=== PATIENT | male | born 1950 | race Two or more races ===

== ENCOUNTER 2019-10-20 11:58 | Inpatient (IN) | payer MEDICAID ==
[~2019-10-20] VITALS: Ht 165.1 cm; Wt 82.2 kg
[2019-10-20 12:00] VITALS: BP 142/83
[2019-10-20] MEDS ORDERED: TYLENOL325 M1 PO (12:14)
[2019-10-20] MEDS ORDERED: CRANBERRY450 M4 PO (12:14)
[2019-10-20] MEDS ORDERED: TENORMIN25 MG ORAL (12:14)
[2019-10-20] MEDS ORDERED: TEGRETOL100 MG/5 M PO (12:14)
[2019-10-20] MEDS ORDERED: ASPIR 8181 MG ORAL (12:14)
[2019-10-20] MEDS ORDERED: BETAMETHASONE D15 GM TP (12:14)
[2019-10-20] MEDS ORDERED: TYLENOL EXTRA500 MG ORAL (12:14)
[2019-10-20] MEDS ORDERED: MULTIVITAMINS1 EAC8 ORAL (12:14)
--- NOTE | 2019-10-20 12:24 | Emergency Room Report ---
History of Present Illness General Chief Complaint: Abnormal Labs Present Illness HPI Disclaimer: Please note that this report is being documented using DRAGON technology. This can lead to erroneous entry secondary to incorrect interpretation by the dictating instrument. HPI: 69-year-old male with a history of seizure disorder, intellectual disability, unspecified psychiatric issue, hypertension presents from [facility] for evaluation of low sodium. Accompanying paperwork shows labs were collected on 10/13 and reported a sodium of 128. The patient is denying any pain or complaints at this time. No other issues listed in accompanying paperwork. PMH: Hypertension, seizure disorder, personal disorder, electrical delay PSH: Unspecified brain surgery Allergies: None reported Social Hx: None reported Allergies: Coded Allergies: No Known Allergies (Unverified , 10/20/19) COVID-19 Screening Contact w/high risk pt: No Recent Travel to affected area: No Experienced COVID-19 symptoms?: No COVID-19 Testing performed LEAK INSPECTOR: No Nursing Documentation-PMH Hx Hypertension: Yes Hx Seizures: Yes - epilepsy Review of Systems All Other Systems: negative except mentioned in HPI Physical Exam Vital Signs Date Time Temp Pulse Resp B/P (MAP) Pulse Ox O2 Delivery O2 Flow Rate FiO2 10/20/19 11:58 98.4 54 20 146/88 (107) 93 Room Air General: Awake, Pleasant, no distress HEENT: Evidence of prior craniotomy with depression on the left skull. Cardiovascular: RRR. S1 and S2 normal. No murmur appreciated Resp: Normal work of breathing. No cough, wheezing or crackles appreciated Abdomen: Abdomen is soft, nondistended. Nontender Skin: Intact. No abrasions, laceration or rash over the exposed skin MSK: Normal tone and bulk. Moving all extremities. No obvious deformity. Neuro: Awake and alert. Mentating appropriately. Medical Decision Making Diagnostic Impression: Primary Impression: Hyponatremia ER Course 69-year-old male presents from nursing facility for evaluation of hyponatremia found on outpatient testing. Patient arrives well-appearing and reportedly at his neurologic baseline. No acute distress at this time. Labs confirmed hyponatremia. Sent urine electrolytes, cortisol which are pending. Patient will be admitted to his PMD, Dr. Jones. Laboratory Tests Test 10/20/19 12:30 White Blood Count 12.7 K/UL (4.8-10.8) H Red Blood Count 5.28 M/UL (4.70-6.10) Hemoglobin 16.4 G/DL (14.2-18.0) Hematocrit 45.5 % (42.0-52.0) Mean Corpuscular Volume 86 FL (80-99) Mean Corpuscular Hemoglobin 31.1 PG (27.0-31.0) H Mean Corpuscular Hemoglobin Concent 36.1 G/DL (32.0-36.0) H Red Cell Distribution Width 10.8 % (11.6-14.8) L Platelet Count 321 K/UL (150-450) Mean Platelet Volume 5.1 FL (6.5-10.1) L Neutrophils (%) (Auto) 55.7 % (45.0-75.0) Lymphocytes (%) (Auto) 25.7 % (20.0-45.0) Monocytes (%) (Auto) 9.8 % (1.0-10.0) Eosinophils (%) (Auto) 7.6 % (0.0-3.0) H Basophils (%) (Auto) 1.2 % (0.0-2.0) Urine Color Yellow Urine Appearance Clear Urine pH 6.5 (4.5-8.0) Urine Specific [place] 1.015 (1.005-1.035) Urine Protein 1+ (NEGATIVE) H Urine Glucose (UA) Negative (NEGATIVE) Urine Ketones Negative (NEGATIVE) Urine Blood 1+ (NEGATIVE) H Urine Nitrite Negative (NEGATIVE) Urine Bilirubin Negative (NEGATIVE) Urine Urobilinogen Normal MG/DL (0.0-1.0) Urine Leukocyte Esterase Negative (NEGATIVE) Urine RBC 0-2 /HPF (0 - 0) H Urine WBC 0 /HPF (0 - 0) Urine Squamous Epithelial Cells Occasional /LPF Urine Amorphous Sediment Few /LPF (NONE) H Urine Bacteria Occasional /HPF (NONE) Urine Osmolality 671 mOsm/kg (429-449) H Urine Random Sodium 50 mmol/L (20-110) Urine Collection Time Pending Urine Total Volume Pending Urine Sodium mEQ/L Pending Urine Sodium 24 Hour Pending Sodium Level 129 MMOL/L (136-145) L Potassium Level 4.1 MMOL/L (3.5-5.1) Chloride Level 93 MMOL/L (98-107) L Carbon Dioxide Level 26 MMOL/L (21-32) Anion Gap 10 mmol/L (5-15) Blood Urea Nitrogen 11 mg/dL (7-18) Creatinine 0.7 MG/DL (0.55-1.30) Estimated Glomerular Filtration Rate > 60 mL/min (>60) Glucose Level 96 MG/DL (74-106) Calcium Level 8.8 MG/DL (8.5-10.1) Phosphorus Level 3.9 MG/DL (2.5-4.9) Magnesium Level 1.8 MG/DL (1.8-2.4) Thyroid Stimulating Hormone (TSH) 1.927 uiU/mL (0.358-3.740) Cortisol 9.0 UG/DL Last Vital Signs Date Time Temp Pulse Resp B/P (MAP) Pulse Ox O2 Delivery O2 Flow Rate FiO2 10/20/19 11:58 98.4 54 20 146/88 (107) 93 Room Air Disposition: ADMITTED INPATIENT Condition: Stable Aman Chow MD Oct 20, 2019 12:24
--- NOTE | 2019-10-20 12:30 | NUR ---
ED Nurse Note: Pt BIBA from [facility] for abnormal labs. Pt had Na lab level of 128. Pt is alert and orientedx3, british speaking. He has 2 indentations in head. Pt has cast on R foot and arm. Pulses present, ROM 3/5.
[2019-10-20 13:12] LABS: APPEARANCE,URINE CLEAR; BILIRUBIN, URINE NEGATIVE (NEGATIVE); GLUCOSE, URINE (UA) NEGATIVE (NEGATIVE); KETONES,URINE NEGATIVE (NEGATIVE); LEUKOCYTE ESTERASE ,URINE NEGATIVE (NEGATIVE); NITRITE,URINE NEGATIVE (NEGATIVE); PH,URINE 6.5 (4.5-8.0); PROTEIN,URINE 1+ (NEGATIVE); UROBILINOGEN,URINE NORMAL MG/DL (0.0-1.0)
[2019-10-20 13:16] LABS: BASOPHILS % (AUTO) 1.2 % (0.0-2.0); COLOR,URINE YELLOW; EOSINOPHILS % (AUTO) 7.6 % (0.0-3.0); HEMATOCRIT 45.5 % (42.0-52.0); HEMOGLOBIN 16.4 G/DL (14.2-18.0); LYMPHOCYTES % (AUTO) 25.7 % (20.0-45.0); MEAN CORPUSCULAR VOLUME 86 FL (80-99); MONOCYTES % (AUTO) 9.8 % (1.0-10.0); NEUTROPHILS % (AUTO) 55.7 % (45.0-75.0); PLATELET COUNT 321 K/UL (150-450); RED BLOOD COUNT 5.28 M/UL (4.70-6.10); RED CELL DISTRIBUTION WIDTH 10.8 % (11.6-14.8); WHITE BLOOD COUNT 12.7 K/UL (4.8-10.8)
[2019-10-20 13:22] LABS: ANION GAP 10 mmol/L (5-15); BLOOD UREA NITROGEN 11 mg/dL (7-18); CALCIUM 8.8 MG/DL (8.5-10.1); CARBON DIOXIDE 26 MMOL/L (21-32); CHLORIDE 93 MMOL/L (98-107); CREATININE 0.7 MG/DL (0.55-1.30); POTASSIUM 4.1 MMOL/L (3.5-5.1); SODIUM 129 MMOL/L (136-145)
[2019-10-20 13:36] LABS: PHOSPHORUS 3.9 MG/DL (2.5-4.9)
[2019-10-20 15:43] VITALS: BP 136/76
--- NOTE | 2019-10-20 15:43 | NUR ---
ED Nurse Note: Report given to Marion CEBALLOS.
[2019-10-20] MEDS ORDERED: Acetaminophen 500mg (ES) tab ORAL PRN (15:49)
[2019-10-20] MEDS ORDERED: HydrALAZINE 25mg tab ORAL PRN (15:51)
--- NOTE | 2019-10-20 16:10 | NUR ---
ED Nurse Note: Pt transferred to MS w/ al belongings. No acute distress. VSS.
--- NOTE | 2019-10-20 17:37 | NUR ---
NURSE NOTES: Report received from ED at 1530, patient will be admitted to room 405-[address] Jones. Addendum: 10/20/19 at 1818 by Marion Gongora RN Report received from TUCKER Ortiz.
[2019-10-20] MEDS ORDERED: carBAMazepine 200mg tab ORAL SCH (18:00)
[2019-10-20] MEDS: Docusate 100mg cap ORAL SCH (18:04)
[2019-10-20] MEDS: D5NS 1,000 ML IV SCH (18:05)
--- NOTE | 2019-10-20 18:19 | NUR ---
NURSE NOTES: Admitted a 69 year old male from ED at 4:[address] Jones with admitting dx of Hyponatremia, alert and oriented x 3-4, verbal and able to make needs known in [place], no shortness of breath, no c/o any pain or discomfort upon arrival, VS as follows: BP: 139/74 RR: 16 HR: 78 T:98.2, on room air, IV line on left AC patent and flushing well with D5NS running at 50 cc/hr tolerating well, bed in lowest position with alarm on, side rails up x 2 and breaks engaged, will continue to monitor and proceed with plan of care, nursing needs attended, call light within reach.
--- NOTE | 2019-10-20 19:43 | NUR ---
HAND-OFF: Report given to TUCKER Fu.
--- NOTE | 2019-10-20 19:44 | NUR ---
NURSE NOTES: Receive pt on the bad awake, verbal and A&O x3-4. pt has no sob,fever,cough and pain. bed in the lowest position, locked,alarm on and seizure precaution implanted. call light within reach. we will keep monitoring
[2019-10-20 20:00] VITALS: BP 138/73
[2019-10-20] MEDS: carBAMazepine 200mg tab ORAL SCH (20:26)
[2019-10-20] MEDS: Heparin 5000 units/ml inj SUBQ SCH (20:32)
[2019-10-21] VITALS: BP 158/83
[2019-10-21 04:00] VITALS: BP 148/95
--- NOTE | 2019-10-21 07:35 | NUR ---
NURSE NOTES: Received pt lying in hospital bed in semi-salcedo's position eating breakfast. Pt is AAO x 4, able to make needs known, appreciative when spoken to in Italian, on seizure precaution and RA with no s/s of distress or c/o pain noted at this time. Pt is on regular diet. pIV present on L AC 18 g running D5NS at 50 ml/hr. Rash present on pt's back per report with B leg redness. Will continue POC.
--- NOTE | 2019-10-21 07:36 | NUR ---
HAND-OFF: Report given to TUCKER Skinner.
[2019-10-21 07:50] LABS: BASOPHILS % (AUTO) 1.5 % (0.0-2.0); HEMATOCRIT 44.2 % (42.0-52.0); HEMOGLOBIN 16.3 G/DL (14.2-18.0); LYMPHOCYTES % (AUTO) 33.1 % (20.0-45.0); MEAN CORPUSCULAR VOLUME 86 FL (80-99); MONOCYTES % (AUTO) 11.1 % (1.0-10.0); NEUTROPHILS % (AUTO) 46.4 % (45.0-75.0); PLATELET COUNT 320 K/UL (150-450); RED BLOOD COUNT 5.13 M/UL (4.70-6.10); RED CELL DISTRIBUTION WIDTH 10.6 % (11.6-14.8); WHITE BLOOD COUNT 12.1 K/UL (4.8-10.8)
[2019-10-21 08:00] VITALS: BP 142/76
[2019-10-21 08:18] LABS: ALANINE AMINOTRANSFERASE 23 U/L (12-78); ALBUMIN 3.6 G/DL (3.4-5.0); ALBUMIN/GLOBULIN RATIO 1.1 (1.0-2.7); ALKALINE PHOSPHATASE 71 U/L (46-116); ANION GAP 10 mmol/L (5-15); ASPARTATE AMINO TRANSFERASE 23 U/L (15-37); BILIRUBIN,TOTAL 0.6 MG/DL (0.2-1.0); BLOOD UREA NITROGEN 10 mg/dL (7-18); CALCIUM 8.6 MG/DL (8.5-10.1); CARBON DIOXIDE 26 MMOL/L (21-32); CHLORIDE 97 MMOL/L (98-107); CHOLESTEROL 138 MG/DL (< 200); CREATININE 0.7 MG/DL (0.55-1.30); FERRITIN 173 NG/ML (8-388); GAMMA GLUTAMYL TRANSPEPTIDASE 128 U/L (5-85); HDL CHOLESTEROL 41 MG/DL (40-60); PHOSPHORUS 3.8 MG/DL (2.5-4.9); POTASSIUM 3.9 MMOL/L (3.5-5.1); SODIUM 133 MMOL/L (136-145); TRIGLYCERIDES 108 MG/DL (30-150)
[2019-10-21 08:26] LABS: % IRON SATURATION 48 % (15-50); IRON 124 ug/dL (50-175); TOTAL IRON BINDING CAPACITY 259 ug/dL (250-450)
[2019-10-21] MEDS: Atenolol 25mg tab ORAL SCH (09:35)
[2019-10-21] MEDS: Docusate 100mg cap ORAL SCH ×2 (09:35→18:49)
[2019-10-21] MEDS: Aspirin EC 81mg tab ORAL SCH (09:35)
[2019-10-21] MEDS: carBAMazepine 200mg tab ORAL SCH ×2 (09:36→20:46)
[2019-10-21] MEDS: Heparin 5000 units/ml inj SUBQ SCH ×2 (09:37→20:48)
--- NOTE | 2019-10-21 10:11 | Consultation ---
Consult Note Consult Note I am asked to evaluate the patient at the request of Dr. Jones for a hypo- natremia. Patient was seen in room 405 this morning. Patient dysphasic and has weakness over the right side. Emergency room note: Chief Complaint: Abnormal Labs HPI: 69-year-old male with a history of seizure disorder, intellectual disability, unspecified psychiatric issue, hypertension presents from [facility] for evaluation of low sodium. Accompanying paperwork shows labs were collected on 10/13 and reported a sodium of 128. The patient is denying any pain or complaints at this time. No other issues listed in accompanying paperwork. PMH: Hypertension, seizure disorder, personal disorder, electrical delay PSH: Unspecified brain surgery Allergies: None reported Social Hx: None reported No Known Allergies (Unverified , 10/20/19) COVID-19 Screening Contact w/high risk pt: No Recent Travel to affected area: No Experienced COVID-19 symptoms?: No COVID-19 Testing performed STARTING SHEET TANK OPERATOR: No Hx Hypertension: Yes Hx Seizures: Yes - epilepsy Patient examined. Data reviewed. Assessment/Plan Hyponatremia, most likely partly depletional. Seizure disorder. Mental developmental disorder. Right-sided weakness, possible previous cerebral event Mild elevation of hemoglobin A1c. Plan: D5 normal saline hydration improved hyponatremia Tegretol level within acceptable range Continue per current management. Keep the blood pressure in check. I spent an additional 36 minutes on review of medical records including prior hospital records,consult notes, progress notes, procedures ,imaging labs, hemodynamics, and other clinical documentation. Over 35 min Nilay Cline MD Oct 21, 2019 10:11
--- NOTE | 2019-10-21 10:46 | NUR ---
*-* INSURANCE *-* ALL AVAILABLE CLINICALS HAVE BEEN FAXED TO: [facility] P:[phone] F:[phone]
[2019-10-21 12:00] VITALS: BP 153/89
[2019-10-21] MEDS: D5NS 1,000 ML IV SCH (12:50)
--- NOTE | 2019-10-21 13:45 | NUR ---
RADIOLOGY DEPT., CHEST AND RIGHT TIB/FIB HAS BEEN IMAGED.-P.DYE
--- NOTE | 2019-10-21 14:25 | NUR ---
CASE MANAGEMENT:INITIAL REVIEW 69 YR OLD MALE BIBA FROM [facility] CC;ABNORMAL LABS SI;HYPONATREMIA 98.4 54 20 146/88 93% ONR A WBC 12.7 NA 129 UA = PROTEIN, BLOOD, RBC, AMORPHOUS SEDIMENT, OSMALITY 671 IS;IVF D5 ADMITTED TO MED SURG MED SURG STATUS DCP;FROM [facility]
--- NOTE | 2019-10-21 14:40 | Diagnostic Imaging Report ---
Indication: Cough Technique: One view of the chest Comparison: none Findings: There is some atelectasis at the left lateral lung base. Lungs and pleural spaces are otherwise clear. The heart size is normal. The aorta is tortuous. Impression: Left lateral basilar atelectasis. No acute process otherwise
[2019-10-21 16:00] VITALS: BP 163/105
--- NOTE | 2019-10-21 19:00 | Consultation ---
DATE OF CONSULTATION: 10/21/2019 INFECTIOUS DISEASE CONSULTATION CONSULTING PHYSICIAN: Ermias Swenson MD. PRIMARY ATTENDING: Britta Jones MD. REASON FOR CONSULT: Leukocytosis, eosinophilia, rash. HISTORY OF PRESENT ILLNESS: This is a 69-year-old male admitted yesterday from retirement because of abnormal laboratories, hyponatremia, and leukocytosis. He is very poor historian. PAST MEDICAL HISTORY: Positive for epilepsy, likely has CVA. He has pathologic fracture. He has dental problem. ALLERGIES: No known drug allergy. MEDICATIONS: Getting aspirin, atenolol, carbamazepine, Protonix, heparin, Colace, hydralazine, Tylenol. SOCIAL HISTORY: [facility] resident. . Currently nonsmoker. No alcohol or drug abuse. REVIEW OF SYSTEMS: No fever. No chills. Very limited. He has itching in the lower extremities thigh area, more in the right side. PHYSICAL EXAMINATION: VITAL SIGNS: Temperature 98.2, pulse 68, blood pressure is 142/76. GENERAL APPEARANCE: No acute distress. HEAD AND NECK: [place] conjunctivae. HEART: Normal rate. LUNGS: Clear. ABDOMEN: Soft, nontender. EXTREMITIES: Has no edema. Seems to have a scar of surgery in right lower extremity. SKIN: rash with erythema and ulcerative papules more in the right thigh and around the knee. LABORATORY AND DIAGNOSTIC DATA: WBC 12.1, hemoglobin 16.3, hematocrit 44.2, platelets 320. Eosinophils 8%. Sodium 133. Sodium at the time of admission is 129, potassium 3.9, chloride 97, bicarb 26, BUN 10, creatinine 0.7. UA was negative for wbc's. I could not find any chest x-ray. IMPRESSION: 1. Leukocytosis and eosinophilia. 2. Rash. We will empirically treat for scabies. 3. Hyponatremia. 4. 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 5. Hypertension. 6. Seizure disorder. RECOMMENDATION: We will order a chest x-ray. We will give a dose of Elimite. We will follow up the cultures. At the end of my exam, I thank Dr. Jones for involving me in the care of this patient. Ermias Swenson M.D. DR: CANDIDO JOB#: [id number] CC: GHASSAN
--- NOTE | 2019-10-21 19:30 | NUR ---
HAND-OFF: Report given to TUCKER Davis. POC Endorsed.
--- NOTE | 2019-10-21 19:40 | NUR ---
NURSE NOTES: Received report from Pietro CEBALLOS, the patient is alert and seem to be cooperative with his care. He is on RA with resp even and unlabored and the bilateral lung sound clear on auscultation. Bed in low position , 3 siderails up and call light within easy reached. will continue to monitor
[2019-10-21 20:00] VITALS: BP 139/86
--- NOTE | 2019-10-21 23:45 | History and Physical Report ---
DATE OF ADMISSION: 10/20/2019 HISTORY OF PRESENT ILLNESS: The patient is admitted for hyponatremia. The patient also has rash and itching. The Infectious Disease has been consulted for rash and leukocytosis. The patient denies nausea, vomiting, or diarrhea. The patient has a history of seizure disorders and is a poor historian, cannot get a reliable history. Denies shortness of breath. Denies cough. Denies nausea, vomiting, or diarrhea. Denies dizziness or seizures. PAST MEDICAL HISTORY: Hypertension, seizure disorder, organic brain syndrome, personality disorder, and intellectual delay. PAST SURGICAL HISTORY: Denies. MEDICATIONS: The patient takes aspirin, Tylenol, Tegretol, and multivitamin. SOCIAL HISTORY: Denies history of smoking. Denies history of alcohol or illicit drugs. Comes from facility. FAMILY HISTORY: Noncontributory. REVIEW OF SYSTEMS: HEENT: Denies headaches. PULMONARY: Denies shortness of breath. Denies cough. CARDIOVASCULAR: Denies chest pain. GASTROINTESTINAL: Denies nausea, vomiting, or diarrhea. EXTREMITIES: Denies pain. CENTRAL NERVOUS SYSTEM: However, he is a poor historian. PHYSICAL EXAMINATION: VITAL SIGNS: Temperature 98.2, pulse is 68, and blood pressure 142/76. HEENT: PERRLA. CHEST: Clear to auscultation. CARDIOVASCULAR: Regular rate and rhythm. No murmurs or extra sounds. GASTROINTESTINAL: Soft, nontender, nondistended. No organomegaly. EXTREMITIES: No edema. Moves extremities. NEUROLOGIC: No generalized weakness. Poor historian. LABORATORY DATA: WBC of 12.7, hemoglobin of 16.4 sodium 129, potassium 4.1, BUN of 11, creatinine 0.7, and glucose 96. ASSESSMENT AND PLAN: Hyponatremia. I have asked Dr. Cline to see the patient for the management of hyponatremia and replacement with saline. The patient also has rash and leukocytosis. Infectious Disease, Dr. Swenson, is consulted to rule out infectious etiology of the rash and rule out possible scabies. Britta Jones M.D. DR: SREE JOB#: [id number] CC:
[2019-10-22] VITALS: BP 131/80
[2019-10-22 04:00] VITALS: BP 156/82
--- NOTE | 2019-10-22 07:46 | NUR ---
NURSE NOTES: Report received from TUCKER Davis. Pt awake in bed, no SOB, no c/o any discomfort at this time, bed in lowest position with breaks engaged and alarm on, IV line on L AC patent, will continue to monitor and proceed with plan of care, call light within reach.
--- NOTE | 2019-10-22 07:57 | NUR ---
HAND-OFF: Report given to Rolan RN.
[2019-10-22 08:00] VITALS: BP 118/73
[2019-10-22] MEDS: Aspirin EC 81mg tab ORAL SCH (09:01)
[2019-10-22] MEDS: Docusate 100mg cap ORAL SCH ×2 (09:01→17:46)
[2019-10-22] MEDS: Atenolol 25mg tab ORAL SCH (09:02)
[2019-10-22] MEDS: carBAMazepine 200mg tab ORAL SCH ×2 (09:02→20:46)
[2019-10-22] MEDS: Heparin 5000 units/ml inj SUBQ SCH ×2 (09:03→20:47)
[2019-10-22] MEDS: D5NS 1,000 ML IV SCH (09:05)
--- NOTE | 2019-10-22 09:23 | Nephrology Progress Note ---
Assessment/Plan Problem List: (1) Hyponatremia (2) Seizure disorder (3) Insulin resistance Assessment Hyponatremia, most likely partly depletional. Seizure disorder. Mental developmental disorder. Right-sided weakness, possible previous cerebral event Mild elevation of hemoglobin A1c. Plan No blood work done today, will check labs tomorrow D5 normal saline hydration improved hyponatremia, will continue Tegretol level within acceptable range Continue per current management. Keep the blood pressure in check. Subjective ROS Limited/Unobtainable: No Constitutional: Reports: other - Not in any distress Objective Objective Last 24 Hour Vital Signs Date Time Temp Pulse Resp B/P (MAP) Pulse Ox O2 Delivery O2 Flow Rate FiO2 10/22/19 09:02 61 118/73 10/22/19 08:00 97.7 61 18 118/73 (88) 94 10/22/19 04:00 97.6 62 18 156/82 (106) 95 10/22/19 00:00 97.8 72 20 131/80 (97) 96 10/21/19 21:00 Room Air 10/21/19 20:00 98.0 70 20 139/86 (103) 96 10/21/19 16:42 163/105 10/21/19 16:00 98.2 65 20 163/105 (124) 97 10/21/19 12:00 98.2 59 18 153/89 (110) 91 10/21/19 09:35 68 142/76 Intake and Output 10/21/19 10/22/19 19:00 07:00 Intake Total 530 ml 1030 ml Output Total 800 ml 1460 ml Balance -270 ml -430 ml Intake Oral 480 ml IV Total 50 ml 550 ml Other 480 ml Output Urine Total 800 ml 1460 ml # Voids 7 No blood work done today Height (Feet): 5 Height (Inches): 5.00 Weight (Pounds): 181 General Appearance: no apparent distress Cardiovascular: normal rate Respiratory/Chest: decreased breath sounds Abdomen: soft, other - Obese Nilay Cline MD Oct 22, 2019 09:23
--- NOTE | 2019-10-22 11:32 | Diagnostic Imaging Report ---
EXAM: X-RAY XRAY Leg Lower Tib Fib 2v R CLINICAL HISTORY: Leg pain. COMPARISON: None FINDINGS: Total of 2 views of the right tibia and fibula were obtained. Alignment is anatomic. Old fracture deformity of the distal tibia and fibula noted. No acute fracture, bony lesion or erosion seen. Joint spaces are unremarkable. Surrounding soft tissue is normal. IMPRESSION: OLD FRACTURE DEFORMITY OF THE DISTAL TIBIA AND FIBULA. NO ACUTE BONY ABNORMALITY.
[2019-10-22 12:00] VITALS: BP 125/78
--- NOTE | 2019-10-22 13:50 | NUR ---
CASE MANAGEMENT:REVIEW SI;HYPONATREMIA. SEIZURE DISORDER. 97.9 56 20 156/82 94% ON RA IS;ASA PO PROTONIX PO TEGRETOL PO HEPARIN SUBQ IVF D5W @ 50 ML/HR MED SURG STATUS DCP; PATIENT IS FROM [facility]
[2019-10-22 16:00] VITALS: BP 121/71
--- NOTE | 2019-10-22 16:13 | Infectious Diseases Prog Note ---
Assessment/Plan Assessment/Plan IMPRESSION: 1. Leukocytosis and eosinophilia. 2. Rash. treated for scabies. 3. Hyponatremia. 4. 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 5. Hypertension. 6. Seizure disorder. RECOMMENDATION: Received a dose of Elimite. We will follow up CBC Subjective ROS Limited/Unobtainable: No Constitutional: Reports: no symptoms Respiratory: Reports: no symptoms Gastrointestinal/Abdominal: Reports: no symptoms Genitourinary: Reports: no symptoms Allergies: Coded Allergies: No Known Allergies (Unverified , 10/20/19) Objective Vital Signs Last 24 Hour Vital Signs Date Time Temp Pulse Resp B/P (MAP) Pulse Ox O2 Delivery O2 Flow Rate FiO2 10/22/19 12:00 97.9 56 18 125/78 (94) 97 10/22/19 09:02 61 118/73 10/22/19 09:00 Room Air 10/22/19 08:00 97.7 61 18 118/73 (88) 94 10/22/19 04:00 97.6 62 18 156/82 (106) 95 10/22/19 00:00 97.8 72 20 131/80 (97) 96 10/21/19 21:00 Room Air 10/21/19 20:00 98.0 70 20 139/86 (103) 96 10/21/19 16:42 163/105 Height (Feet): 5 Height (Inches): 5.00 Weight (Pounds): 181 General Appearance: no acute distress HEENT: mucous membranes moist Respiratory/Chest: lungs clear Cardiovascular: normal rate Abdomen: soft, non tender Extremities: no edema, other - R leg deformity Neurologic/Psychiatric: alert, responsive, other - R hemiplegia Microbiology Date/Time Source Procedure Growth Status 10/20/19 15:39 Nasal Nares MRSA Culture - Final NO METHICILLIN RESISTANT STAPH AUREUS... Complete 10/20/19 15:39 Rectum - Final NO CARBAPENEM-RESISTANT ENTEROBACTERI... Complete 10/20/19 15:39 Rectum VRE Culture - Final NO VANCOMYCIN RESISTANT ENTEROCOCCUS ... Complete Current Medications Medications (Trade) Dose Ordered Sig/Leonardo Route PRN Reason Start Time Stop Time Status Last Admin Dose Admin Acetaminophen (Tylenol) 500 mg Q6H PRN ORAL MILD/TEMP 10/20/19 15:49 11/19/19 15:48 Aspirin (Ecotrin) 81 mg DAILY ORAL 10/21/19 09:00 12/05/19 08:59 10/22/19 09:01 Atenolol (Tenormin) 25 mg DAILY ORAL 10/21/19 09:00 11/20/19 08:59 10/22/19 09:02 Carbamazepine (TEGretol) 100 mg Q12HR ORAL 10/20/19 21:00 11/19/19 20:59 10/22/19 09:02 Dextrose/Sodium Chloride 1,000 ml @ 50 mls/hr Q20H IV 10/20/19 15:50 11/19/19 15:49 10/22/19 09:05 Docusate Sodium (Colace) 100 mg TWICE A DAY ORAL 10/20/19 18:00 11/19/19 17:59 10/22/19 09:01 Heparin Sodium (Porcine) (Heparin 5000 units/ml) 5,000 units EVERY 12 HOURS SUBQ 10/20/19 21:00 12/04/19 20:59 10/22/19 09:03 Hydralazine HCl (Apresoline) 25 mg Q4H PRN ORAL bp over 160 syst 10/20/19 15:51 01/18/20 15:50 10/21/19 16:42 Pantoprazole (Protonix) 40 mg DAILY ORAL 10/21/19 09:00 11/20/19 08:59 10/22/19 09:01 Ermias Swenson MD Oct 22, 2019 16:13
--- NOTE | 2019-10-22 19:45 | NUR ---
HAND-OFF: Report given to TUCKER Delarosa.
--- NOTE | 2019-10-22 19:46 | NUR ---
NURSE NOTES: Received patient in no apparent distress. A&OX3. IV site patent and intact. Right side weakness. Bed in lowest position. Call light within reach. Will continue to monitor.
[2019-10-22 20:00] VITALS: BP 136/73
--- NOTE | 2019-10-22 23:16 | General Progress Note ---
Assessment/Plan Problem List: (1) Hyponatremia ICD Codes: E87.1 - Hypo-osmolality and hyponatremia SNOMED: 18943133 (2) Seizure disorder ICD Codes: G40.909 - Epilepsy, unspecified, not intractable, without status epilepticus SNOMED: 399819137 (3) Insulin resistance ICD Codes: E88.81 - Metabolic syndrome SNOMED: 721348602 Status: progressing Assessment/Plan: s/p treatment for scabies off isolation per id hyponatremia resolved dc in am Subjective ROS Limited/Unobtainable: Yes Allergies: Coded Allergies: No Known Allergies (Unverified , 10/20/19) Objective Last 24 Hour Vital Signs Date Time Temp Pulse Resp B/P (MAP) Pulse Ox O2 Delivery O2 Flow Rate FiO2 10/22/19 16:00 98.2 62 18 121/71 (88) 94 10/22/19 12:00 97.9 56 18 125/78 (94) 97 10/22/19 09:02 61 118/73 10/22/19 09:00 Room Air 10/22/19 08:00 97.7 61 18 118/73 (88) 94 10/22/19 04:00 97.6 62 18 156/82 (106) 95 10/22/19 00:00 97.8 72 20 131/80 (97) 96 Intake and Output 10/21/19 10/22/19 19:00 07:00 Intake Total 530 ml 1030 ml Output Total 800 ml 1460 ml Balance -270 ml -430 ml Intake Oral 480 ml IV Total 50 ml 550 ml Other 480 ml Output Urine Total 800 ml 1460 ml # Voids 7 Height (Feet): 5 Height (Inches): 5.00 Weight (Pounds): 181 Britta Jones MD Oct 22, 2019 23:16
[2019-10-23] VITALS: BP 141/78
[2019-10-23] MEDS: D5NS 1,000 ML IV SCH (03:52)
[2019-10-23 04:00] VITALS: BP 127/77
[2019-10-23 06:35] LABS: BASOPHILS % (AUTO) 1.3 % (0.0-2.0); EOSINOPHILS % (AUTO) 8.5 % (0.0-3.0); HEMATOCRIT 42.7 % (42.0-52.0); HEMOGLOBIN 15.9 G/DL (14.2-18.0); MEAN CORPUSCULAR VOLUME 86 FL (80-99); MONOCYTES % (AUTO) 8.3 % (1.0-10.0); PLATELET COUNT 303 K/UL (150-450); RED BLOOD COUNT 4.94 M/UL (4.70-6.10); RED CELL DISTRIBUTION WIDTH 10.7 % (11.6-14.8); WHITE BLOOD COUNT 12.6 K/UL (4.8-10.8)
--- NOTE | 2019-10-23 07:13 | NUR ---
HAND-OFF: Report given to Wing CEBALLOS. VS stable. Call light within reach. Will continue to monitor.
[2019-10-23 07:24] LABS: ALANINE AMINOTRANSFERASE 25 U/L (12-78); ALBUMIN 3.5 G/DL (3.4-5.0); ALKALINE PHOSPHATASE 70 U/L (46-116); ANION GAP 11 mmol/L (5-15); ASPARTATE AMINO TRANSFERASE 24 U/L (15-37); BILIRUBIN,TOTAL 0.4 MG/DL (0.2-1.0); BLOOD UREA NITROGEN 13 mg/dL (7-18); CALCIUM 8.6 MG/DL (8.5-10.1); CARBON DIOXIDE 25 MMOL/L (21-32); CHLORIDE 98 MMOL/L (98-107); CREATININE 0.8 MG/DL (0.55-1.30); PHOSPHORUS 3.6 MG/DL (2.5-4.9); POTASSIUM 3.6 MMOL/L (3.5-5.1); SODIUM 133 MMOL/L (136-145)
--- NOTE | 2019-10-23 07:56 | NUR ---
NURSE NOTES: received report from TUCKER Delarosa. patient in bed. A&Ox4, verbally responsive. no respiratory distress noted on room air. no pain at this time. IV on LAC 18. saline lock. intact. r/c scabes. no c/o itchiness at this time. bed bound. right side weakness. bed in the lowest position and locked. call light within reach. will continue to provide plan of care.
[2019-10-23 08:00] VITALS: BP 134/81
[2019-10-23] MEDS: Heparin 5000 units/ml inj SUBQ SCH (08:53)
[2019-10-23] MEDS: Atenolol 25mg tab ORAL SCH (08:53)
[2019-10-23] MEDS: Aspirin EC 81mg tab ORAL SCH (08:53)
[2019-10-23] MEDS: Docusate 100mg cap ORAL SCH ×2 (08:53→08:59)
[2019-10-23] MEDS: carBAMazepine 200mg tab ORAL SCH (08:53)
--- NOTE | 2019-10-23 09:00 | NUR ---
NURSE NOTES: patient refused taking colace 100mg po for bowel movement. the patient said he made BM two days ago which is normal for him. no abd pain or discomfort at this time. RN explained risks and benefits.
--- NOTE | 2019-10-23 10:07 | NUR ---
*-* DISCHARGE PLANNING *-* PATIENT HAS BEEN REFERRED BACK TO: [facility] P: [phone] F: [phone] EFAX: [phone] EAMIL: [email or web address] Addendum: 10/23/19 at 1131 by MARLENE PONCE LVN LVN FOLLOW UP CALL MADE TO [facility] @ [phone]. S/W ARTICE. STATED ADMISSIONS NOT AVAILABLE AT TIME OF CALL. WILL CALL BACK IN RE TO BED ASSIGNMENT.
--- NOTE | 2019-10-23 11:03 | Nephrology Progress Note ---
Assessment/Plan Problem List: (1) Hyponatremia (2) Seizure disorder (3) Insulin resistance Assessment Hyponatremia, most likely partly depletional. Seizure disorder. Mental developmental disorder. Right-sided weakness, possible previous cerebral event Mild elevation of hemoglobin A1c. Plan Today's lab reviewed. Renal parameters within acceptable range. Will DC IV. Discharge planning per PMD. Previously: D5 normal saline hydration improved hyponatremia, will continue Tegretol level within acceptable range Continue per current management. Keep the blood pressure in check. Subjective ROS Limited/Unobtainable: No Constitutional: Reports: malaise Objective Objective Last 24 Hour Vital Signs Date Time Temp Pulse Resp B/P (MAP) Pulse Ox O2 Delivery O2 Flow Rate FiO2 10/23/19 08:53 57 134/81 10/23/19 08:00 98.6 57 17 134/81 (98) 95 10/23/19 04:00 98.1 56 18 127/77 (94) 95 10/23/19 00:00 97.9 56 18 141/78 (99) 92 10/22/19 21:00 Room Air 10/22/19 20:00 98.6 57 18 136/73 (94) 94 10/22/19 16:00 98.2 62 18 121/71 (88) 94 10/22/19 12:00 97.9 56 18 125/78 (94) 97 Intake and Output 10/22/19 10/23/19 19:00 07:00 Intake Total 930 ml 910 ml Output Total 300 ml 1200 ml Balance 630 ml -290 ml Intake Oral 480 ml IV Total 450 ml 550 ml Other 360 ml Output Urine Total 300 ml 1200 ml Current Medications Medications (Trade) Dose Ordered Sig/Leonardo Route PRN Reason Start Time Stop Time Status Last Admin Dose Admin Acetaminophen (Tylenol) 500 mg Q6H PRN ORAL MILD/TEMP 10/20/19 15:49 11/19/19 15:48 Aspirin (Ecotrin) 81 mg DAILY ORAL 10/21/19 09:00 12/05/19 08:59 10/23/19 08:53 Atenolol (Tenormin) 25 mg DAILY ORAL 10/21/19 09:00 11/20/19 08:59 10/23/19 08:53 Carbamazepine (TEGretol) 100 mg Q12HR ORAL 10/20/19 21:00 11/19/19 20:59 10/23/19 08:53 Docusate Sodium (Colace) 100 mg TWICE A DAY ORAL 10/20/19 18:00 11/19/19 17:59 10/22/19 17:46 Heparin Sodium (Porcine) (Heparin 5000 units/ml) 5,000 units EVERY 12 HOURS SUBQ 10/20/19 21:00 12/04/19 20:59 10/23/19 08:53 Hydralazine HCl (Apresoline) 25 mg Q4H PRN ORAL bp over 160 syst 10/20/19 15:51 01/18/20 15:50 10/21/19 16:42 Pantoprazole (Protonix) 40 mg DAILY ORAL 10/21/19 09:00 11/20/19 08:59 10/23/19 08:53 Laboratory Tests 10/23/19 05:21: White Blood Count 12.6H, Red Blood Count 4.94, Hemoglobin 15.9, Hematocrit 42.7 , Mean Corpuscular Volume 86, Mean Corpuscular Hemoglobin 32.2H, Mean Corpuscular Hemoglobin Concent 37.3H, Red Cell Distribution Width 10.7L, Platelet Count 303, Mean Platelet Volume 5.2L, Neutrophils (%) (Auto) 60.0, Lymphocytes (%) (Auto) 22.0, Monocytes (%) (Auto) 8.3, Eosinophils (%) (Auto) 8.5H, Basophils (%) (Auto) 1.3, Sodium Level 133L, Potassium Level 3.6, Chloride Level 98, Carbon Dioxide Level 25, Anion Gap 11, Blood Urea Nitrogen 13 , Creatinine 0.8, Estimat Glomerular Filtration Rate > 60, Glucose Level 87, Uric Acid 3.8, Calcium Level 8.6, Phosphorus Level 3.6, Magnesium Level 1.8, Total Bilirubin 0.4, Gamma Glutamyl Transpeptidase 152H, Aspartate Amino Transf (AST/SGOT) 24, Alanine Aminotransferase (ALT/SGPT) 25, Alkaline Phosphatase 70, Total Protein 6.9, Albumin 3.5, Globulin 3.4, Albumin/Globulin Ratio 1.0 Height (Feet): 5 Height (Inches): 5.00 Weight (Pounds): 181 General Appearance: no apparent distress Respiratory/Chest: decreased breath sounds Abdomen: soft Objective No change Nilay Cline MD Oct 23, 2019 11:03
[2019-10-23 12:00] VITALS: BP 130/76
--- NOTE | 2019-10-23 12:30 | NUR ---
NURSE NOTES: called to Sal [phone] Altagracia [phone]/family member to notify patient will be discharged to [facility]. Both were not available at this time. not able to leave message either.
--- NOTE | 2019-10-23 13:00 | NUR ---
NURSE NOTES: RYLEY [facility] asked if the patient scrape test done for scabies. notified Chris,Charge nurse. we don't do scrape test at hospital. informed Maria TWillRYLEY timmons and she is aware.
--- NOTE | 2019-10-23 13:00 | NUR ---
NURSE NOTES: given report to [facility]. spoke to DON. Ashley
--- NOTE | 2019-10-23 13:50 | NUR ---
NURSE NOTES: patient was discharged to [facility] with stable condition via ambulance rney. A&Ox4, verbally responsive. no respiratory distress noted. no pain at this time. removed IV and ID band. provided dc packet. patient was not able to sing on the document d/t right side weakness. nurse explained discharge processing. checked and counted belongings together. patient verbalized understood. no pressure sores. d/c isolation for r/o scabies. no c/o itchiness noted. dried scab rashes on general body. provided hygiene care.
--- NOTE | 2019-10-23 14:38 | NUR ---
*-* INSURANCE *-* UPDATED CLINICALS AND REVIEWS (NO DISCHARGE SUMMARY IN THE [facility] YET) HAVE BEEN FAXED TO: [employer] NET P:[phone] F:[phone]
--- NOTE | 2019-10-24 15:54 | NUR ---
*-* NO DISCHARGE SUMMARY IN THE SYSTEM *-*
--- NOTE | 2019-10-27 01:07 | Discharge Summary ---
Discharge Summary Discharge Summary _ DATE OF ADMISSION: 10/20/2019 DATE OF DISCHARGE: 10/23/2019 DISCHARGED BY: Dr. Britta Lopez CONSULTANTS: Dr. Nilay Swenson BRIEF HOSPITAL COURSE: Patient is a 69-year-old male with history of seizure disorder, unspecified psychiatric issue and hypertension presented from residential for evaluation of low sodium. Paperwork showed that blood work collected on 10/14/2019 reported sodium of 128. Upon evaluation at the ED, blood work showed WBC 12.7. Hemoglobin and hematocrit were stable. Sodium level was 129. Potassium 4.1. Chloride 93. BUN 11 and creatinine 0.7. Labs confirmed hyponatremia. Patient was then admitted for further evaluation. Patient was given D5 NS. Patient had a hyponatremia, most likely likely depletional. Electrolytes were closely monitored. Tegretol level was normal. He was noted to have generalized rash. He was treated empirically with Elimite for possible scabies. Hyponatremia improved. Cortisol and TSH levels were normal. Random urinary sodium 50. Urine osmolality 671. 24-hour urine results are still pending. IV fluid discontinued. Patient was discharged back to residential. FINAL DIAGNOSES: Hyponatremia most likely partly depletional Seizure disorder Mental developmental disorder Right-sided weakness, possible previous cerebral event Mild elevation of hemoglobin A1c Rashes, possible scabies status post treatment DISPOSITION: DC to SNF. DISCHARGE MEDICATIONS: Refer to Discharge Medication List. I have been assigned to complete a discharge summary on this account, I was not involved with the patient's management.--CARLOS Gutierrez Jacqueline Robles NP Oct 27, 2019 01:07
--- NOTE | 2019-10-27 13:56 | NUR ---
*-* INSURANCE *-* DISCHARGE SUMMARY HAS BEEN FAXED TO: [employer] P:[phone] F:[phone]
== END 2019-10-23 13:35 | DRG 426 ==
LOC: EDBD 11:58 → EMR 12:08 → EDBEDREQ 13:58 → 4E 14:05 → EDBEDREQ 14:47 → 4E 10-21 12:16
DX: E87.1 Hypo-osmolality and hyponatremia (principal); D72.1 Eosinophilia; I69.951 Hemiplegia and hemiparesis following unspecified cerebrovascular disease affecting right dominant side; G40.909 Epilepsy, unspecified, not intractable, without status epilepticus; B86 Scabies; I10 Essential (primary) hypertension; F79 Unspecified intellectual disabilities; I69.351 Hemiplegia and hemiparesis following cerebral infarction affecting right dominant side; E88.81 Metabolic syndrome and other insulin resistance
CPT/HCPCS: 36415; 71045; 80048; 80053; 80061; 80156; 81003; 82533; 82728; 82746; 82977; 83036; 83540; 83550; 83735; 83880; 83930; 83935; 84100; 84300; 84443; 84550; 85025; 86140; 87081; 99285